=== PATIENT | female | born 1985 | race Caucasian/White ===

== ENCOUNTER → 2021-06-18 14:43 | Outpatient (BNVA) | payer MEDICAID, SELFPAY | PROVIDERS: Family Provider Family Medicine; PCP Family Medicine; Visit Provider Nurse Practitioner Family | DX: Z20.822 Contact with and (suspected) exposure to COVID-19 (principal); J06.9 Acute upper respiratory infection, unspecified | CPT/HCPCS: 87635 ==

== ENCOUNTER → 2022-07-13 14:11 | Outpatient (BNVA) | payer MEDICAID, SELFPAY | PROVIDERS: Family Provider Family Medicine; PCP Family Medicine; Visit Provider Obstetrics & Gynecology | DX: O09.32 Supervision of pregnancy with insufficient antenatal care, second trimester (principal); Z12.4 Encounter for screening for malignant neoplasm of cervix; Z87.59 Personal history of other complications of pregnancy, childbirth and the puerperium; O09.292 Supervision of pregnancy with other poor reproductive or obstetric history, second trimester | CPT/HCPCS: 80307; 81000; 85027; 86592; 86762; 86803; 86850; 86900; 87086; 87340; 87491; 87591; 87624; 87806 ==

== ENCOUNTER → 2022-07-16 09:26 | Outpatient (BNVA) | payer MEDICAID, SELFPAY | PROVIDERS: Family Provider Family Medicine; PCP Family Medicine; Visit Provider Obstetrics & Gynecology | DX: Z34.92 Encounter for supervision of normal pregnancy, unspecified, second trimester (principal); Z3A.23 23 weeks gestation of pregnancy | CPT/HCPCS: 76805; 82950 ==

== ENCOUNTER → 2022-07-21 08:22 | Outpatient (BNVA) | payer MEDICAID, SELFPAY | PROVIDERS: Family Provider Family Medicine; PCP Family Medicine; Visit Provider Obstetrics & Gynecology | DX: O09.32 Supervision of pregnancy with insufficient antenatal care, second trimester (principal); F31.9 Bipolar disorder, unspecified; F41.9 Anxiety disorder, unspecified; O09.292 Supervision of pregnancy with other poor reproductive or obstetric history, second trimester; O99.330 Smoking (tobacco) complicating pregnancy, unspecified trimester | CPT/HCPCS: 81000; 82951; 82952 ==

== ENCOUNTER → 2022-08-18 08:06 | Outpatient (BNVA) | payer MEDICAID, SELFPAY | PROVIDERS: Family Provider Family Medicine; PCP Family Medicine; Visit Provider Obstetrics & Gynecology | DX: O09.899 Supervision of other high risk pregnancies, unspecified trimester (principal); Z3A.00 Weeks of gestation of pregnancy not specified | CPT/HCPCS: 81000; 85025 ==

== ENCOUNTER → 2022-08-28 09:05 | Outpatient (BNVA) | payer MEDICAID, SELFPAY | PROVIDERS: Family Provider Family Medicine; PCP Family Medicine; Visit Provider Obstetrics & Gynecology | DX: O09.899 Supervision of other high risk pregnancies, unspecified trimester (principal); Z3A.00 Weeks of gestation of pregnancy not specified | CPT/HCPCS: 81000 ==

== ENCOUNTER → 2022-09-11 14:47 | Outpatient (BNVA) | payer MEDICAID, SELFPAY | PROVIDERS: PCP Family Medicine; Visit Provider Obstetrics & Gynecology | DX: O09.899 Supervision of other high risk pregnancies, unspecified trimester (principal) | CPT/HCPCS: 81000 ==

== ENCOUNTER → 2022-10-09 10:37 | Outpatient (BNVA) | payer MEDICAID, SELFPAY | PROVIDERS: PCP Family Medicine; Visit Provider Obstetrics & Gynecology | DX: O09.893 Supervision of other high risk pregnancies, third trimester (principal); O99.320 Drug use complicating pregnancy, unspecified trimester; F12.90 Cannabis use, unspecified, uncomplicated | CPT/HCPCS: 80307; 81000; 87081 ==

== ENCOUNTER 2022-10-16 15:14 | Outpatient (CLI) | payer MEDICAID, SELFPAY ==
[2022-10-16 15:25] VITALS: BMI 34.7
[2022-10-16 15:33] VITALS: BP 142/98; PULSE 101
[2022-10-16 15:47] VITALS: BP 130/93; PULSE 88
[2022-10-16 16:03] LABS: Add Urine Microscopic? NO; Basophils # 0.1 10^3/uL (0.0-0.1); Basophils % 0.4 %; Charge for UA Resulting for Rev; Eosinophils # 0.2 10^3/uL (0.0-0.8); Eosinophils % 1.5 %; Hematocrit 36.8 % (37.0-47.0); Hemoglobin 11.9 g/dL (11.5-15.3); Lymphocytes # 2.6 10^3/uL (0.8-4.8); Lymphocytes % 18.6 %; Mean Corpuscular HGB Conc 32.3 g/dL (30.0-36.0); Mean Corpuscular Volume 92.7 fl (81-99); Mean Platelet Volume 10.2 fL (7.4-10.4); Monocytes # 1.1 10^3/uL (0.2-0.9); Monocytes % 7.9 %; Neutrophils # 9.96 10^3/uL (1.8-7.7); Neutrophils % 70.7 %; Nucleated Red Blood Cells % 0 %; Platelet Count 346 10^3/cmm (130-400); Red Blood Count 3.97 10^6/uL (4.1-5.3); Red Cell Distribution Width 12.9 % (12.1-15.1); White Blood Count 14.1 10^3/uL (4.0-10.0)
[2022-10-16 16:04] LABS: Bilirubin Urine Neg (Negative); Blood Urine Neg (Negative); Glucose Urine UA Norm (Normal); Ketones Urine Negative (Negative); Leukocyte Esterase Urine Negative (Negative); Nitrate Urine Negative (Negative); Protein Urine Neg (Negative); Urine Appearance Clear (CLEAR); Urine Color Yellow (Yellow); Urobilinogen Urine Neg (Negative); pH Urine 6.5 (5-7)
[2022-10-16 16:05] VITALS: BP 114/75; PULSE 84
[2022-10-16 16:17] VITALS: BP 111/75; PULSE 80
[2022-10-16 16:22] LABS: Urine Creatinine 31 mg/dL (28-217); Urine Protein Random 5 mg/dL
[2022-10-16 16:23] LABS: Actim Prom Negative
[2022-10-16 16:24] LABS: Alanine Aminotransferase 11 U/L (0-33); Albumin Level 3.1 g/dL (3.5-5.2); Alkaline Phosphatase 218 U/L (35-105); Anion Gap 17.1 (5-19); Aspartate Amino Transferase 15 U/L (0-32); Blood Urea Nitrogen 5 mg/dL (6-20); Calcium 8.1 mg/dL (8.5-10.5); Carbon Dioxide 18 mmol/L (22-29); Chloride 105 mmol/L (98-107); Globulin 3.5 g/dL (1.3-4.6); Glomerular Filtration Rate 139.6 mL/min (90-130); Glucose 93 mg/dL (65-115); Osmolality Calculated 279 mOsm/kg (285-295); Potassium 4.1 mmol/L (3.5-5.1); Sodium 136 mmol/L (136-145); Total Bilirubin 0.2 mg/dL (0.15-1.2); Total Protein 6.6 g/dL (6.6-8.7); Uric Acid 4.3 mg/dL (2.4-5.7)
[2022-10-16 16:26] LABS: UPRO/UCREAT Ratio 0.16 mg/mg CR
== END 2022-10-16 16:37 | disposition home or self-care (01) ==
LOC: OPOB 15:15 → OBGYN 15:25
PROVIDERS: Obstetrics & Gynecology; PCP Family Medicine; Visit Provider Obstetrics & Gynecology
DX: O26.899 Other specified pregnancy related conditions, unspecified trimester (principal); Z3A.00 Weeks of gestation of pregnancy not specified; N89.8 Other specified noninflammatory disorders of vagina
CPT/HCPCS: 36415; 59025; 80053; 81000; 81003; 82570; 84112; 84156; 84550; 85025; 87086; 99211

== ENCOUNTER → 2022-10-20 10:40 | Outpatient (BNVA) | payer MEDICAID, SELFPAY | PROVIDERS: PCP Family Medicine; Visit Provider Obstetrics & Gynecology | DX: O09.899 Supervision of other high risk pregnancies, unspecified trimester (principal); Z3A.00 Weeks of gestation of pregnancy not specified | CPT/HCPCS: 81000; 87086 ==

== ENCOUNTER 2022-10-30 10:37 | Inpatient (IN) | payer MEDICAID, SELFPAY ==
[2022-10-30] VITALS (61 sets, daily range): BP systolic 120–155; BP diastolic 58–94; PULSE 64–116; RESP 18; TEMP 35.9–36.4; O2SAT 98–100; BMI 42.0
[2022-10-30 11:06] LABS: Amphetamines Screen Urine Negative (Negative); Barbiturates Screen Urine Negative (Negative); Benzodiazepines Screen Urine Negative (Negative); Cocaine Screen Urine Negative (Negative); Opiate Screen Urine Negative (Negative); PCP Screen Urine Negative (Negative); THC Screen Urine Negative (Negative)
[2022-10-30 11:17] LABS: Basophils # 0.1 10^3/uL (0.0-0.1); Basophils % 0.7 %; Eosinophils # 0.1 10^3/uL (0.0-0.8); Eosinophils % 1.3 %; Hematocrit 36.7 % (37.0-47.0); Hemoglobin 12.2 g/dL (11.5-15.3); Lymphocytes # 2.1 10^3/uL (0.8-4.8); Lymphocytes % 19.2 %; Mean Corpuscular HGB Conc 33.2 g/dL (30.0-36.0); Mean Corpuscular Volume 90.2 fl (81-99); Mean Platelet Volume 10.2 fL (7.4-10.4); Monocytes # 0.8 10^3/uL (0.2-0.9); Neutrophils % 71.1 %; Nucleated Red Blood Cells % 0 %; Platelet Count 331 10^3/cmm (130-400); Red Blood Count 4.07 10^6/uL (4.1-5.3); White Blood Count 10.7 10^3/uL (4.0-10.0)
[2022-10-30] MEDS: miSOPROStol 100 mcg tablet 25 MCG VAGINAL (11:55)
[2022-10-30 11:56] LABS: Alanine Aminotransferase < 5 U/L (0-33); Albumin Level 3.2 g/dL (3.5-5.2); Alkaline Phosphatase 205 U/L (35-105); Anion Gap 16.9 (5-19); Aspartate Amino Transferase 10 U/L (0-32); Blood Urea Nitrogen 5 mg/dL (6-20); Calcium 8.5 mg/dL (8.5-10.5); Carbon Dioxide 17 mmol/L (22-29); Chloride 105 mmol/L (98-107); Globulin 2.9 g/dL (1.3-4.6); Glomerular Filtration Rate 139.6 mL/min (90-130); Glucose 100 mg/dL (65-115); Osmolality Calculated 277 mOsm/kg (285-295); Potassium 3.9 mmol/L (3.5-5.1); Sodium 135 mmol/L (136-145); Total Bilirubin 0.2 mg/dL (0.15-1.2); Total Protein 6.1 g/dL (6.6-8.7); Uric Acid 4.7 mg/dL (2.4-5.7)
[2022-10-30 12:11] LABS: Urine Creatinine 169 mg/dL (28-217); Urine Protein Random 19 mg/dL
[2022-10-30 12:12] LABS: UPRO/UCREAT Ratio 0.11 mg/mg CR
--- NOTE | 2022-10-30 19:06 | PM.OPHPUD ---
Labor & Delivery H&P Update Date of Procedure: October 30, 2022 Admission Diagnosis: Preop diagnosis: IUP
--- NOTE | 2022-10-30 19:07 | P.HP_ITS ---
Providers/Chief Complaint Admitting Physician: Shaun Graves MD Primary ADMINISTRATIVE SUPPORT MANAGER: Macario Yu M.D. Primary Care Provider: Dustin Galeano MD Chief Complaint: induction HPI ADMINISTRATIVE SUPPORT MANAGER History of Present Illness October 30, 2022, 1025 OB ADMIT NOTE 37 y.o. EDC? November 04, 2022 At 39 w 2 d Admitted for IOL due to mildly elevated BPs No other complications No headaches Admits to blurry vision yesterday And facial and hand swelling POBHx:? x three ?Diagnosed with preeclampsia with first PMHx:? ADHD ?Bipolar disorder PSHx:?oral surgery Meds:? vitamins NKDA Exam:?weight? 195? lbs ?BPs ? Abd:? soft, nontender ?Cx:? per RN, 1 cm External monitor: ? heart tracing good variability ?+? accelerations LABS Today:? Hgb? 12.2 ? Platelets? 331? K ?UDS? negative Blood type? O? + GBS?negative A/P: 39 w 2 d Mildly elevated BPs Admit for IOL Plan cytotec 25 ug intravaginal h/o x three Present Details : 4 Para: 3 Labs Rubella: Immune RPR: Negative GBS: Negative Medications/Allergies Home Medications Medication Instructions Recorded Confirmed Last Taken Type folic acid 400 mcg tablet 0.4 mg PO DAILY 07/13/22 10/30/22 Unknown History Allergies Allergy/AdvReac Type Severity Reaction Status Date / Time No Known Allergies Allergy Verified 10/30/22 09:44 PFSH ADMINISTRATIVE SUPPORT MANAGER PFSH: Medical History (Updated 07/21/22 @ 13:46 by Diana Friedman APN, SCOTT) ADD (attention deficit disorder) Allergic rhinitis due to allergen Anxiety and depression Bipolar 1 disorder, depressed managed by [facility] and Galeano; no longer with [facility]; using Valium bid prn. History of pre-eclampsia Insomnia Surgical History (Updated 07/21/22 @ 13:32 by Diana Friedman APN, SCTOT) H/O oral surgery (~2005) wisdom teeth extraction Family History Father Diabetes Hyperlipidemia Hypertension Stroke Heart disease Grandfather Diabetes maternal Grandmother Diabetes paternal Family/Other Breast cancer maternal aunt, onset unknown Denies family history of Colon cancer Ovarian cancer Clotting disorder Anesthesia complication Bleeding disorder Uterine cancer Thyroid condition Social History Smoking and tobacco status: current some day smoker (0.5 PPD) History History History 4 Term 3 0 Miscarriages/Ectopic 0 Living Children 3 Care KAN Calculator Estimated Delivery Date Method Current WG Current Estimate 11/04/22 Ultrasound #1 39w 2d Other Estimates 11/09/22 Ultrasound #2 38w 4d Specific Issues/Plans * HX OF PRE-E AT 30 WEEKS * MIGRAINES * BIPOLAR D.O. * BENZODIAZEPINE USE IN * LATE PNC AT 23 WEEKS Vitals/I&O/Wt Last Vital Signs Temp 97.5 F L 10/30/22 18:47 Pulse 80 10/30/22 18:47 Resp 18 10/30/22 11:30 BP 130/70 10/30/22 18:47 O2 Del Method 10/30/22 11:00 Weight last 48 hrs Weight 230 lb Data 10/30/22 11:00 10/30/22 10:40 Attestations Medical Necessity Statement*: patient at 39 w 2 d with mildly elevated BPs, admitted for labor induction Coding Level of Care Code Acute Take Down Sorter for Brayang Jazzmine
--- NOTE | 2022-10-30 19:12 | P.PN_ITS ---
RESIDENT INTERN Subjective Subjective: Interval history: October 30, 2022, 1849 Feeling moderate UCs Fetus reassuring Cx ?(per RN)? 3 cm Received cytotec 25 ug intravaginal x one dose Plan recheck cervix in two hours Labor: Station: -2 Amniotic Membrane Status: Intact Monitor Mode: External Contraction Pattern: Irregular Vitals/I&O/Wt Last Vital Signs Temp 97.5 F L 10/30/22 18:47 Pulse 80 10/30/22 18:47 Resp 18 10/30/22 11:30 BP 130/70 10/30/22 18:47 O2 Del Method 10/30/22 11:00 Weight last 48 hrs Weight 230 lb Data 10/30/22 11:00 10/30/22 10:40 Attestations Medical Necessity Statement*: patient undergoing labor induction at 39 weeks Coding Level of Care Code Acute Academic Affairs Assistant for Ovidio Dover
[2022-10-30] MEDS: lactated ringers 1,000 ML 999 ML IV (20:13)
--- NOTE | 2022-10-30 21:01 | P.ANESUD_ITS ---
Pre-Anesthetic Update Pre-Anesthetic Assessment: Date of Surgery/Procedure: 10/30/22 Preop Lindsay gnosis: IUP Proposed Procedure: epidural Any changes to Pre-Anesthetic Assessment?: No Labs Last 48hrs: Short CBC 10/30/22 Range/Units 11:00 WBC 10.7 H (4.0-10.0) 10^3/ uL Hgb 12.2 (11.5-15.3) g/dL Hct 36.7 L (37.0-47.0) % MCV 90.2 (81-99) fl Plt Count 331 (130-400) 10^3/c mm Neut % (Auto) 71.1 % Neut # (Auto) 7.60 (1.8-7.7) 10^3/u L BMP 10/30/22 10:40 Sodium 135 L Potassium 3.9 Chloride 105 Carbon Dioxide 17 L BUN 5 L Creatinine 0.5 Glucose 100 Calcium 8.5 Liver Function 10/30/22 Range/Units 10:40 Total Bilirubin 0.2 (0.15-1.2) mg/dL AST 10 (0-32) U/L ALT < 5 (0-33) U/L Alkaline Phosphata se 205 H (35-105) U/L Albumin 3.2 L (3.5-5.2) g/dL Vitals: Temperature 97.5 F L 10/30/22 18:47 Pulse Rate 80 10/30/22 20:54 Pulse Rhythm 10/30/22 11:00 Pulse Strength 3+ Normal 10/30/22 11:00 Respiratory Rate 18 10/30/22 11:30 Respiratory Effort Non-Labored 10/30/22 11:00 Respiratory Depth Normal 10/30/22 11:00 Respiratory Patter n 10/30/22 11:00 Blood Pressure 128/78 10/30/22 20:54 Oxygen Delivery Me thod 10/30/22 11:00 Exam: Pre-Anes Outpt Exam: alert, oriented x 3, clear to auscultation bilaterally and regular rate & rhythm Cardiac Studies: No Data to Display
[2022-10-30] MEDS: dextrose 5%-lactated ringers 1,000 ML 125 ML IV (21:11)
--- NOTE | 2022-10-30 21:26 | ANES.PROC ---
Anesthesia Procedures Procedure/Date: 10/30/22 epidural Procedure Narrative: epidural complete, bolus given, epidural pump initiated with RADIO MECHANIC HELPER education given, vitals taken during procedure and satisfactory throughout, patient admits to decrease pain, report of procedure to OB RN Epidural: Time Out Performed: Yes Consents Signed: Procedure Consent Consent: requested by attending/covering physician, from patient, risks and benefits reviewed and patient agrees to proceed Lumbar Level: L3-L4 Epidural position: sitting Epidural procedure: sterile prep of area, 1% lidocaine to numb the area (3 mL), 18 g needle, negative for paresthesia passed, neg for paresthesia, test dose given, 1.5% xylocaine 1:200k epi (5 mL), 0.2% Ropivacaine bolus ml (5 mL), placed PCEA, no systemic response, sterile dressing applied, L.U.D. no apparent complications and 0.2% Ropiavacaine @ mls/hr (13 mL/hr)
--- NOTE | 2022-10-30 21:39 | P.PN_ITS ---
CLIENT TECHNOLOGIES SPECIALIST Subjective Subjective: Interval history: October 30, 2022, 2119 BPs? normal Fetus reassuring Comfortable with epidural Cx:? (by my exam) ?2 cm / 50% / -3 / posterior Plan start Pitocin augmentation Labor: Station: -3 Amniotic Membrane Status: Intact Monitor Mode: External Contraction Pattern: Irregular Vitals/I&O/Wt Last Vital Signs Temp 97.5 F L 10/30/22 18:47 Pulse 85 10/30/22 21:37 Resp 18 10/30/22 11:30 BP 142/72 10/30/22 21:35 Pulse Ox 98 10/30/22 21:37 O2 Del Method 10/30/22 11:00 Weight last 48 hrs Weight 230 lb Data 10/30/22 11:00 10/30/22 10:40 Attestations Medical Necessity Statement*: patient undergoing labor induction. Coding Level of Care Code Acute Hair Spinning Machine Operator for Ovidio Dover
[2022-10-30] MEDS: oxytocin 30 UNIT/500 ML BAG IV (22:12)
[2022-10-30] MEDS: ondansetron 2 mg/ML SDV 2 mL 4 MG IVP (22:23)
[2022-10-31] VITALS (46 sets, daily range): BP systolic 105–173; BP diastolic 61–95; PULSE 61–116; RESP 15–18; TEMP 36.3–37.1; O2SAT 95–99
--- NOTE | 2022-10-31 00:30 | P.PN_ITS ---
CHIEF ENGINEER Subjective Subjective: Interval history: October 31, 2022, 0020 Comfortable with epidural Fetus reassuring On Pitocin, presently 7 mU Continue Pitocin per protocol Labor: Station: -3 Amniotic Membrane Status: Intact Monitor Mode: External Contraction Pattern: Irregular Vitals/I&O/Wt Last Vital Signs Temp 97.5 F L 10/30/22 18:47 Pulse 83 10/31/22 00:17 Resp 18 10/30/22 11:30 BP 162/79 10/31/22 00:17 Pulse Ox 98 10/30/22 21:37 O2 Del Method 10/30/22 11:00 10/30/22 10/30/22 10/31/22 14:59 22:59 06:59 Intake Total 0.55 / 0.55 2.25 / 2.80 Balance 0.55 / 0.55 2.25 / 2.80 Weight last 48 hrs Weight 230 lb Physical Exam Urinary Catheter Management: Nathan: Cath Placed During This Visit: yes Urinary Catheter Date of Insertion: 10/30/22 Urinary Catheter Time of Insertion: 22:18 Data 10/30/22 11:00 10/30/22 10:40 Attestations Medical Necessity Statement*: patient undergoing labor induction Coding Level of Care Code Acute Senior Engineering Specialist for Ovidio Dover
--- NOTE | 2022-10-31 00:58 | P.PN_ITS ---
PARKS AND RECREATION WORKER Subjective Subjective: Interval history: October 31, 2022, 0050 Cx:? (per RN)?? 5 cm Labor: Station: -3 Amniotic Membrane Status: Intact Monitor Mode: External Contraction Pattern: Irregular Vitals/I&O/Wt Last Vital Signs Temp 97.5 F L 10/30/22 18:47 Pulse 78 10/31/22 00:50 Resp 18 10/30/22 11:30 BP 144/78 10/31/22 00:50 Pulse Ox 98 10/30/22 21:37 O2 Del Method 10/30/22 11:00 10/30/22 10/30/22 10/31/22 14:59 22:59 06:59 Intake Total 0.55 / 0.55 2.25 / 2.80 Balance 0.55 / 0.55 2.25 / 2.80 Weight last 48 hrs Weight 230 lb Physical Exam Urinary Catheter Management: Nathan: Cath Placed During This Visit: yes Urinary Catheter Date of Insertion: 10/30/22 Urinary Catheter Time of Insertion: 22:18 Data 10/30/22 11:00 10/30/22 10:40 Attestations Medical Necessity Statement*: patient undergoing labor induction Coding Level of Care Code Acute Instructor Modeling for Brayang Jazzmine
--- NOTE | 2022-10-31 00:58 | PM.DELIVERY ---
Delivery Note: Date of delivery: October 31, 2022 Pre-delivery diagnoses: 39 weeks gestation mildly elevated BPs Post-delivery diagnoses: same as above s/p vaginal delivery of viable male Procedure: vaginal delivery Delivering Physician: Shaun Graves M.D. Estimated blood loss (mL): 300 Findings: vigorous male Post-Delivery Status: good History History History 4 Term 3 0 Miscarriages/Ectopic 0 Living Children 3 A&P Assessment and plan (1) Tobacco use in : (2) Supervision of other high-risk : Plan s/p vaginal delivery second-degree perineal laceration, repaired Coding Level of Care Code Acute Continuous Improvement Coordinator for [facility] Diagnoses Tobacco use in O99.330 Supervision of other high-risk O09.899
[2022-10-31] MEDS: lactated ringers 1,000 ML 999 ML IV ×2 (01:30→08:47)
[2022-10-31] MEDS: oxytocin 30 UNIT/500 ML BAG 600 UNIT IV (02:00)
[2022-10-31] MEDS: lidocaine 2% INJ 20 mL INJECTION (02:05)
[2022-10-31] MEDS: fentaNYL 50 mcg/mL INJ 2mL 25 MCG IVP (02:11)
--- NOTE | 2022-10-31 02:29 | PM.OBGYPN ---
[employer] Subjective Subjective: Interval history: October 31, 2022, 214 DELIVERY NOTE , vigorous male Normal placenta and cord Cord gases and blood obtained Second-degree perineal laceration repaired EBL:? 300 cc No complications Labor: Station: -2 Amniotic Membrane Status: Intact Monitor Mode: External Contraction Pattern: Irregular Vitals/I&O/Wt Last Vital Signs Temp 97.5 F L 10/30/22 18:47 Pulse 88 10/31/22 02:27 Resp 18 10/30/22 11:30 BP 139/72 10/31/22 02:27 Pulse Ox 98 10/30/22 21:37 O2 Del Method 10/30/22 11:00 10/30/22 10/30/22 10/31/22 14:59 22:59 06:59 Intake Total 0.55 / 0.55 2.25 / 2.80 Balance 0.55 / 0.55 2.25 / 2.80 Weight last 48 hrs Weight 230 lb Physical Exam Urinary Catheter Management: Nathan: Cath Placed During This Visit: yes Urinary Catheter Date of Insertion: 10/30/22 Urinary Catheter Time of Insertion: 22:18 Data 10/30/22 11:00 10/30/22 10:40 Attestations Medical Necessity Statement*: patient s/p vaginal delivery Coding Level of Care Code Acute Insurance Office Supervisor for Ovidio Dover
--- NOTE | 2022-10-31 02:40 | PC.NURSE ---
dressing is damp, anesthesia notified at this time.
[2022-10-31] MEDS: benzocaine-menthol 78 gm Canister 1 SPRAY TOPICAL (04:00)
[2022-10-31] MEDS: HYDROcodone-acetaminophen 5-325 mg Tablet PO ×3 (04:39→18:26)
--- NOTE | 2022-10-31 07:45 | ANES.PREANE2 ---
Pre-Anesthetic Assessment Height/Weight: Height 1.57 m Weight 104.326 kg Temp Pulse Resp BP Pulse Ox O2 Del Method 97.3 F L 75 15 130/68 98 10/31/22 07:13 10/31/22 07:13 10/31/22 03:47 10/31/22 07:13 10/30/22 21:37 10/30/22 11:00 Preop Diagnosis: IUP Operation Date: 10/31/22 09:40 Proposed Procedures p Post Bilateral Tubal Ligation(Bilateral) - Shaun Graves MD Familial anesthetic complications: none Was Beta Marilia taken within 24 hours: N/A Was Clonidine taken within 24 hours: N/A Last intake: > 8hrs Social Tobacco and No alcohol Exam alert, oriented x 3, clear to auscultation bilaterally and regular rate & rhythm Airway Mallampati: Class II Dentition: full GI Gastroesophageal Reflux Disease Metabolic Morbid Obesity Neuropsych Anxiety and Depression Anesthetic Plan ASA status: 2 Anesthesia: General Risk of > 500 ml blood loss (7ml/kg in children): No Medications/Allergies Home Medications Medication Instructions Recorded Confirmed Last Taken Type folic acid 400 mcg tablet 0.4 mg PO DAILY 07/13/22 10/30/22 Unknown History Allergies Allergy/AdvReac Type Severity Reaction Status Date / Time No Known Allergies Allergy Verified 10/30/22 09:44 Current Medications Generic Name Dose Route Start Last Admin Trade Name Freq PRN Reason Stop Dose Admin Hydrocodone Bitart/Acetaminophen 1 - 2 tab 10/31/22 02:43 10/31/22 04:39 Hydrocodone-Acetaminophen 5-325 Mg Tablet PO 1 tab Q6H PRN Administration MODERATE TO SEVERE PAIN Benzocaine 1 spray 10/31/22 02:43 10/31/22 04:00 Benzocaine-Menthol 78 Gm Canister TOPICAL 1 spray PRN PRN Administration PAIN Oxytocin 30 unit in 500 mls @ 600 mls/hr 10/30/22 10:48 10/31/22 04:06 Pitocin IV Infused .Q50M PRN Titration After delivery of Protocol Dextrose/Lactated Ringer's 1,000 mls @ 125 mls/hr 10/30/22 11:00 10/31/22 01:30 Dextrose 5%-Lactated Ringers IV Infused .Q8H SRAVANTHI Infusion Ropivacaine 200 mg in 100 mls @ 13 mls/hr 10/30/22 20:15 10/31/22 02:05 Naropin Premix EPIDURAL Infused .Q7H42M SRAVANTHI Infusion Lactated Ringer's 1,000 mls @ 999 mls/hr 10/30/22 20:03 10/31/22 01:30 Lactated Ringers IV 999 mls/hr .Q1H1M PRN Administration See label comments Oxytocin 30 unit in 500 mls @ 1 mls/hr 10/30/22 21:30 10/31/22 02:00 Pitocin IV 0 milliunit/min .Q24H SRAVANTHI 0 mls/hr Titration Protocol 1 MILLIUNIT/MIN Ondansetron HCl 4 mg 10/30/22 10:48 10/30/22 22:23 Ondansetron 2 Mg/Ml Sdv 2 Ml IVP 4 mg Q4H PRN Administration NAUSEA AND VOMITING PFSH Anesthesia Medical History (Updated 07/21/22 @ 13:46 by Diana Friedman APN, SCOTT) ADD (attention deficit disorder) Allergic rhinitis due to allergen Anxiety and depression Bipolar 1 disorder, depressed managed by [facility] and [facility]; no longer with [facility]; using Valium bid prn. History of pre-eclampsia Insomnia Surgical History (Updated 07/21/22 @ 13:32 by Diana Friedman APN, SCOTT) H/O oral surgery (~2005) wisdom teeth extraction Family History Father Diabetes Hyperlipidemia Hypertension Stroke Heart disease Grandfather Diabetes maternal Grandmother Diabetes paternal Family/Other Breast cancer maternal aunt, onset unknown Denies family history of Colon cancer Ovarian cancer Clotting disorder Anesthesia complication Bleeding disorder Uterine cancer Thyroid condition Social History Smoking and tobacco status: current some day smoker (0.5 PPD) Female Reproductive History : 4 Data Anesthesia 10/30/22 11:00 10/30/22 10:40 Short CBC 10/30/22 Range/Units 11:00 WBC 10.7 H (4.0-10.0) 10^3/uL Hgb 12.2 (11.5-15.3) g/dL Hct 36.7 L (37.0-47.0) % MCV 90.2 (81-99) fl Plt Count 331 (130-400) 10^3/cmm Neut % (Auto) 71.1 % Neut # (Auto) 7.60 (1.8-7.7) 10^3/uL BMP 10/30/22 10:40 Sodium 135 L Potassium 3.9 Chloride 105 Carbon Dioxide 17 L BUN 5 L Creatinine 0.5 Glucose 100 Calcium 8.5 Liver Function 10/30/22 Range/Units 10:40 Total Bilirubin 0.2 (0.15-1.2) mg/dL AST 10 (0-32) U/L ALT < 5 (0-33) U/L Alkaline Phosphatase 205 H (35-105) U/L Albumin 3.2 L (3.5-5.2) g/dL Cardiac Studies: No Data to Display
--- NOTE | 2022-10-31 07:56 | PC.NURSE ---
At 0710 pt reports her back is leaking. Upon assessment the bandaid was wet with clear fluid. Pt denies headache or any other symptoms. Epidural procedure reports no complications. Marcella Anne RN reported that her epidural stopped working and that the dressing was wet. Dr. Olson notified and assessed pt at 0755. Dr. Amaro reports that it is most likely ropivicaine from epidural.
[2022-10-31] MEDS: ibuprofen 800 mg tablet PO (08:14)
[2022-10-31] MEDS: citric acid-sodium citrate 30 mL UDC PO (08:44)
[2022-10-31] MEDS: famotidine 20 mg/2 mL INJ IVP (08:44)
[2022-10-31] MEDS: metoclopramide 5 mg/mL SDV 2 mL 10 MG IVP (08:44)
--- NOTE | 2022-10-31 13:01 | P.OP_ITS ---
Operative Report Date of procedure: October 31, 2022 Pre-op diagnosis: Preop Diagnosis Undesired Fertility Post-op diagnosis: same, desires permanent sterilization Post-op findings: normal tubes and ovaries Procedure done: bilateral partial salpingectomy Implants: none Specimens removed/disposition: bilateral partial fallopian tubes Surgeon: Dr. Collin Graves Dot Net Developer: none Anesthesia: Epidural Estimated blood loss: 5 cc not applicable Complications: none Findings: normal tubes and ovaries Condition: stable Disposition: floor Brief History: patient desires permanent sterilzation. s/o . Procedure: A 3 cm subumbilical incision was made, carried down through subcutaneous tissue and fascia. The intraabdominal peritoneal space was entered bluntly avoiding any bowel. The right fallopian tube was identified to its fimbrial end. The mid-tube region was grasped with a Diana and an opening was made in the mesosalpinx. The fallopian tube was then ligated proximately and distally with a free tie of 2-O chromic. A 3 cm segment of fallopian tube was then excised using Metzenbaum scissors. The proximal and distal ends were cauterized with Bovie. A 3 cm right fallopian tube segment was similarly excised. No bleeding was seen. The fasia and skin incision were closed.
[2022-10-31] MEDS: ketorolac 30 mg/mL INJ IVP ×2 (14:44→22:01)
[2022-10-31] MEDS: docusate sodium 100 mg Capsule PO (18:26)
--- NOTE | 2022-10-31 21:45 | PM.OBGYPN ---
SHOE REPAIRER Subjective Subjective: Interval history: October 31, 2022, 0830 PREOP NOTE Patient is multigravida, s/p vaginal delivery Desires permanent sterilization Understands irreversibility of procedure Does not want reversible control Tubal papers signed more than 30 days prior to date of delivery Plan bilateral tubal ligation Labor: Station: -2 Amniotic Membrane Status: Intact Monitor Mode: External Contraction Pattern: Irregular Vitals/I&O/Wt Last Vital Signs Temp 98.2 F 10/31/22 16:30 Pulse 71 10/31/22 16:30 Resp 16 10/31/22 16:30 BP 105/62 10/31/22 16:30 Pulse Ox 96 10/31/22 14:35 O2 Del Method 10/31/22 14:35 10/31/22 10/31/22 10/31/22 06:59 14:59 22:59 Intake Total 1614.75 / 2615.30 600 / 600 900 / 1500 Output Total 600 / 600 10 / 10 500 / 510 Balance 1014.75 / 2015.30 590 / 590 400 / 990 Weight last 48 hrs Weight 230 lb Physical Exam Urinary Catheter Management: Nathan: Cath Placed During This Visit: yes, but has since been removed by the nurse Reason for Continuing Indwelling Catheter: Other Urinary Catheter Date of Insertion: 10/30/22 Urinary Catheter Time of Insertion: 22:18 Date Urinary Catheter Removed: 10/31/22 Time Urinary Catheter Discontinued: 01:03 Data 10/30/22 11:00 10/30/22 10:40 Attestations Medical Necessity Statement*: patient s/p vaginal delivery, desires permanent sterilization Coding Level of Care Code Acute Clinical Unit Coordinator for [facility] Jazz[facility]
--- NOTE | 2022-10-31 21:46 | PM.OBGYPN ---
BARREL BRANDER Subjective Subjective: Interval history: October 31, 2022, 1045 BRIEF OP NOTE Procedure:? mini-laparotomy bilateral partial salpingectomy Surgeon:? Dr. Graves Anesthesia:? General EBL:? 10 cc Complications:? none Specimens:? bilateral partial tubal segments Labor: Station: -2 Amniotic Membrane Status: Intact Monitor Mode: External Contraction Pattern: Irregular Vitals/I&O/Wt Last Vital Signs Temp 98.2 F 10/31/22 16:30 Pulse 71 10/31/22 16:30 Resp 16 10/31/22 16:30 BP 105/62 10/31/22 16:30 Pulse Ox 96 10/31/22 14:35 O2 Del Method 10/31/22 14:35 10/31/22 10/31/22 10/31/22 06:59 14:59 22:59 Intake Total 1614.75 / 2615.30 600 / 600 900 / 1500 Output Total 600 / 600 10 / 10 500 / 510 Balance 1014.75 / 2015.30 590 / 590 400 / 990 Weight last 48 hrs Weight 230 lb Physical Exam Urinary Catheter Management: Nathan: Cath Placed During This Visit: yes, but has since been removed by the nurse Reason for Continuing Indwelling Catheter: Other Urinary Catheter Date of Insertion: 10/30/22 Urinary Catheter Time of Insertion: 22:18 Date Urinary Catheter Removed: 10/31/22 Time Urinary Catheter Discontinued: 01:03 Data 10/30/22 11:00 10/30/22 10:40 Attestations Medical Necessity Statement*: patient s/p vaginal delivery, s/p bilateral tubal ligation Coding Level of Care Code Acute Cassandra Architect for Ovidio Dover
[2022-11-01] MEDS: HYDROcodone-acetaminophen 5-325 mg Tablet PO ×2 (03:55→09:58)
[2022-11-01 05:42] VITALS: BP 109/68; PULSE 61; RESP 15; TEMP 36.7; O2SAT 97
[2022-11-01] MEDS: ketorolac 30 mg/mL INJ IVP (08:04)
[2022-11-01 09:21] LABS: Hemoglobin 9.5 g/dL (11.5-15.3); Mean Corpuscular HGB Conc 31.7 g/dL (30.0-36.0); Mean Corpuscular Hemoglobin 29.5 pg (28.0-34.0); Mean Corpuscular Volume 93.2 fl (81-99); Mean Platelet Volume 11.1 fL (7.4-10.4); Platelet Count 249 10^3/cmm (130-400); Red Blood Count 3.22 10^6/uL (4.1-5.3); Red Cell Distribution Width 13.1 % (12.1-15.1); White Blood Count 10.8 10^3/uL (4.0-10.0)
[2022-11-01] MEDS: prenatal vitamin Capsule 1 CAP PO (09:58)
[2022-11-01] MEDS: docusate sodium 100 mg Capsule PO (09:58)
--- NOTE | 2022-11-01 10:45 | P.PN_ITS ---
SCHOOL OCCUPATIONAL THERAPIST Subjective Subjective: Interval history: November 01, 2022, 0835 c/o mild incisional pain, relieved with pain meds eating, voiding, ambulating well caring for without any difficulties no bleeding Exam:? comfortable, afebrile, VS normal ? Abd:? soft, nontender ? Subumbilical wound clean and dry ? Ext:? normal A/P: PPD #1 POD #1? s/p BTL Doing well Plan discharge home today f/u in one week with Dr. Yu Labor: Station: -2 Amniotic Membrane Status: Intact Monitor Mode: External Contraction Pattern: Irregular Vitals/I&O/Wt Last Vital Signs Temp 98.0 F 11/01/22 05:42 Pulse 61 11/01/22 05:42 Resp 15 11/01/22 05:42 BP 109/68 11/01/22 05:42 Pulse Ox 97 11/01/22 05:42 O2 Del Method 11/01/22 05:42 10/31/22 11/01/22 11/01/22 22:59 06:59 14:59 Intake Total 900 / 1500 Output Total 500 / 510 Balance 400 / 990 Weight last 48 hrs Weight 230 lb Physical Exam Urinary Catheter Management: Nathan: Cath Placed During This Visit: yes, but has since been removed by the nurse Reason for Continuing Indwelling Catheter: Other Urinary Catheter Date of Insertion: 10/30/22 Urinary Catheter Time of Insertion: 22:18 Date Urinary Catheter Removed: 10/31/22 Time Urinary Catheter Discontinued: 01:03 Data 11/01/22 08:06 10/30/22 10:40 Micro: Microbiology 10/30/22 16:18 Urine Culture - Final Urine,Clean Catch Attestations Medical Necessity Statement*: post-delivery and postop care Coding Level of Care Code Acute Bunch Breaker Machine Operator for Ovidio Dover
[2022-11-01 10:51] VITALS: BP 115/68; PULSE 67; RESP 14; TEMP 36.8
--- NOTE | 2022-11-01 11:06 | P.DS_ITS ---
Discharge Providers EXTRACTOR OPERATOR SOLVENT PROCESS Date of Admission: 10/30/22 10:37 Date of Discharge: 11/01/22 Attending Provider at Admission: Shaun Graves MD Attending Provider at Discharge: Shaun Graves MD Primary EXTRACTOR OPERATOR SOLVENT PROCESS: Macario Yu M.D. Primary Care Provider: Dustin Galeano MD Diagnoses at Discharge Discharge Diagnosis (1) Tobacco use in : Status: Acute (2) Supervision of other high-risk : Status: Acute (3) Encounter for induction of labor: Status: Acute (4) Request for sterilization: Status: Acute Reason for Visit Reason for Visit: induction Hospital Course Hospital Course vaginal delivery bilateral tubal ligation Information Peripartum Data: Infant Delivery Method: Vaginal Physical Exam Urinary Catheter Management: Nathan: Cath Placed During This Visit: yes, but has since been removed by the nurse Reason for Continuing Indwelling Catheter: Other Urinary Catheter Date of Insertion: 10/30/22 Urinary Catheter Time of Insertion: 22:18 Date Urinary Catheter Removed: 10/31/22 Time Urinary Catheter Discontinued: 01:03 History History History 4 Term 3 0 Miscarriages/Ectopic 0 Living Children 3 Discharge Data Studies Completed and Pending Pending at discharge Category Date Time Status Pathology: Surgical [PTH] Routine Pth 10/31/22 11:09 Ordered Laboratory Results WBC 10.8 10^3/uL (4.0-10.0) H 11/01/22 08:06 RBC 3.22 10^6/uL (4.1-5.3) L 11/01/22 08:06 Hgb 9.5 g/dL (11.5-15.3) L 11/01/22 08:06 Hct 30.0 % (37.0-47.0) L 11/01/22 08:06 MCV 93.2 fl (81-99) 11/01/22 08:06 MCH 29.5 pg (28.0-34.0) 11/01/22 08:06 MCHC 31.7 g/dL (30.0-36.0) 11/01/22 08:06 RDW 13.1 % (12.1-15.1) 11/01/22 08:06 Plt Count 249 10^3/cmm (130-400) 11/01/22 08:06 MPV 11.1 fL (7.4-10.4) H 11/01/22 08:06 Neut % (Auto) 71.1 % 10/30/22 11:00 Lymph % (Auto) 19.2 % 10/30/22 11:00 [place] % (Auto) 7.0 % 10/30/22 11:00 Eos % (Auto) 1.3 % 10/30/22 11:00 Baso % (Auto) 0.7 % 10/30/22 11:00 Neut # (Auto) 7.60 10^3/uL (1.8-7.7) 10/30/22 11:00 Lymph # (Auto) 2.1 10^3/uL (0.8-4.8) 10/30/22 11:00 [place] # (Auto) 0.8 10^3/uL (0.2-0.9) 10/30/22 11:00 Eos # (Auto) 0.1 10^3/uL (0.0-0.8) 10/30/22 11:00 Baso # (Auto) 0.1 10^3/uL (0.0-0.1) 10/30/22 11:00 Nucleated RBC % (auto) 0 % 10/30/22 11:00 Nucleated RBCs # 0.0 /100WBC 10/30/22 11:00 Sodium 135 mmol/L (136-145) L 10/30/22 10:40 Potassium 3.9 mmol/L (3.5-5.1) 10/30/22 10:40 Chloride 105 mmol/L (98-107) 10/30/22 10:40 Carbon Dioxide 17 mmol/L (22-29) L 10/30/22 10:40 Anion Gap 16.9 (5-19) 10/30/22 10:40 BUN 5 mg/dL (6-20) L 10/30/22 10:40 Creatinine 0.5 mg/dL (0.5-0.9) 10/30/22 10:40 GFR Calculation 139.6 mL/min (90-130) H 10/30/22 10:40 Glucose 100 mg/dL (65-115) 10/30/22 10:40 Calculated Osmolality 277 mOsm/kg (285-295) L 10/30/22 10:40 Uric Acid 4.7 mg/dL (2.4-5.7) 10/30/22 10:40 Calcium 8.5 mg/dL (8.5-10.5) 10/30/22 10:40 Total Bilirubin 0.2 mg/dL (0.15-1.2) 10/30/22 10:40 AST 10 U/L (0-32) 10/30/22 10:40 ALT < 5 U/L (0-33) 10/30/22 10:40 Alkaline Phosphatase 205 U/L (35-105) H 10/30/22 10:40 Total Protein 6.1 g/dL (6.6-8.7) L 10/30/22 10:40 Albumin 3.2 g/dL (3.5-5.2) L 10/30/22 10:40 Globulin 2.9 g/dL (1.3-4.6) 10/30/22 10:40 U Random Total Protein 19 mg/dL 10/30/22 10:40 Urine Creatinine 169 mg/dL (28-217) 10/30/22 10:40 Protein/Creatinin Ratio 0.11 mg/mg CR 10/30/22 10:40 Urine Opiates Screen Negative ng/mL (Negative) 10/30/22 10:40 Ur Barbiturates Screen Negative ng/mL (Negative) 10/30/22 10:40 Ur Phencyclidine Scrn Negative ng/mL (Negative) 10/30/22 10:40 Ur Amphetamines Screen Negative ng/mL (Negative) 10/30/22 10:40 U Benzodiazepines Scrn Negative ng/mL (Negative) 10/30/22 10:40 Urine Cocaine Screen Negative ng/mL (Negative) 10/30/22 10:40 U Marijuana (THC) Screen Negative ng/mL (Negative) 10/30/22 10:40 Procedures Performed vaginal delivery bilateral tubal ligation Vitals Last Vital Signs Temp 98.2 F 11/01/22 10:51 Pulse 67 11/01/22 10:51 Resp 14 11/01/22 10:51 BP 115/68 11/01/22 10:51 Pulse Ox 97 11/01/22 05:42 O2 Del Method 11/01/22 05:42 Discharge Plan Discharge Patient Disposition: Home Condition: Stable Prescriptions: New hydrocodone-acetaminophen 5-325 mg Tablet 1 - 2 tab PO Q6H PRN (Reason: Moderate To Severe Pain) Qty: 20 0RF Discontinued folic acid 400 mcg tablet 0.4 mg PO DAILY Discharge Orders: Discharge Order (Routine); Ordered 11/01/22 Ordered By: Shaun Graves Discharge Diet: Usual diet Discharge Activity: Increase activity as tolerated Patient Instructions: Depression (GEN), Bleeding (GEN), OB Discharge Report, OB Food/Drug Interaction Guide, OB Care at Home, Opioid Safety, OB Home Care, OB Vaginal Deliveries - [facility] Discharge Attestations EXTRACTOR OPERATOR SOLVENT PROCESS Time Spent in Discharge Care*: greater than 30 min Coding Level of Care Code Acute Production Team Manager for Chg Fwd Diagnoses Tobacco use in O99.330 Supervision of other high-risk O09.899 Encounter for induction of labor Z34.90 Request for sterilization Z30.2
[2022-11-01 12:30] VITALS: BP 110/70; PULSE 70; RESP 18
[2022-11-01 13:00] VITALS: BP 110/70; PULSE 70; RESP 18
== END 2022-11-01 13:05 | disposition home or self-care (01) | DRG 798 ==
LOC: OBGYN 10:45
PROVIDERS: Admitting Provider Obstetrics & Gynecology; PCP Family Medicine; Visit Provider Obstetrics & Gynecology
PROC: 10E0XZZ Delivery of Products of Conception, External Approach (ICD-10-PCS; CPT 58605; principal; 2022-10-31 09:30)
DX: O16.4 Unspecified maternal hypertension, complicating childbirth (principal); Z37.0 Single live birth; O99.344 Other mental disorders complicating childbirth; O99.334 Smoking (tobacco) complicating childbirth; F17.200 Nicotine dependence, unspecified, uncomplicated; O70.1 Second degree perineal laceration during delivery; Z3A.39 39 weeks gestation of pregnancy; Z30.2 Encounter for sterilization
CPT/HCPCS: 12345; 36415; 51702; 59025; 59409; 80053; 80306; 81000; 82570; 84156; 84550; 85025; 85027; 87086; 88302; 96374; 96376; 99211; J0330; J1885; J2405; J2590; J2704; J2710; J2765; J2795; J3010; J3490; J7120; J7121

== ENCOUNTER 2023-03-18 09:28 | Outpatient (CLI) | payer MEDICAID, SELFPAY ==
--- NOTE | 2023-03-18 10:15 | MR_ITS ---
WS: [id number] MRI HEAD WITHOUT CONTRAST TECHNIQUE: Sagittal T1, T2 axial, T2 axial FLAIR, axial and coronal T1 images, axial susceptibility w eighted imaging, axial diffusion weighted images, and coronal T2 images were obtained. CLINICAL INFORMATION: R51.9 - Headache, unspecified COMPARISON: CT 2009 FINDINGS: No evidence of restricted diffusion to suggest acute ischemia. Ventricular system and basal cisterns are patent. No suspicious intracranial signal abnormalities. Normal posterior fossa. Normal vascular flow voids at the skull base. No extra-axial fluid collections. No evidence of mass or mass effect. Paranasal sinuses are well aerated. Mild mucosal thickening ethmoid air cells. Mastoid air cells well aerated. Normal posterior nasopharynx. Normal parapharyngeal fat. Normal optic chiasm and pituitary infundibulum. Temporal lobes and hippocampal formations are normal in appearance. Normal cavernous si nuses and Meckel's cave. MR/MR head wo con* [id number] IMPRESSION: 1. No evidence of restricted diffusion to suggest acute ischemia. 2. No suspicious intracranial signal abnormalities. 3. Mild mucosal thickening ethmoid air cells. Paranasal sinuses are well aerat ed. 4. Mastoid air cells well aerated. 5. No hemosiderin on susceptibly weighted images. 6. Normal optic chiasm and pituitary infundibulum. 7. No other suspicious findings.
== END 2023-03-18 09:29 | disposition home or self-care (01) ==
LOC: RAD 09:31
PROVIDERS: PCP Family Medicine; Visit Provider Psychiatry & Neurology Neurology
DX: R51.9 Headache, unspecified (principal); R35.0 Frequency of micturition
CPT/HCPCS: 70551; 81000; 87086